=== PATIENT | male | born 1955 | race Caucasian/White ===

== ENCOUNTER 2021-12-24 18:23 | Emergency (ER) | payer MEDICARE, SELFPAY ==
[2021-12-24 18:57] VITALS: BP 137/60; PULSE 90; RESP 20; TEMP 37.1; O2SAT 100
--- NOTE | 2021-12-24 19:01 | ED.URI ---
HPI - URI/Sore Throat General Chief Complaint: Upper Respiratory Infection Stated Complaint: blurry eyes,cough,sneezing Time Seen by Provider: 12/24/21 19:43 Source: patient and RN notes reviewed Mode of arrival: ambulatory Limitations: no limitations History of Present Illness HPI Narrative: 66-year-old male presents with concern for bilateral eye drainage, blurry vision, eye irritation. He reports he also has a cough, nasal congestion, runny nose for 3 days. He reports he has been taking half doses of cough medicine due to his kidney impairment. He denies any injury to his eye, foreign bodies. Denies known sick contacts. Reports he has a history of allergies which she attributes the symptoms to. MD elicited complaint: cough, nasal congestion and other (Eye drainage) Related Data Home Medications Medication Instructions Recorded Confirmed atorvastatin 10 mg tablet 10 mg HS 12/24/21 12/24/21 bupropion HCl 150 mg 24 hr tablet, 150 mg PO DAILY 12/24/21 12/24/21 extended release finasteride 5 mg tablet 5 mg HS 12/24/21 12/24/21 glipizide 10 mg tablet 10 mg DAILY 12/24/21 12/24/21 insulin glargine 100 unit/mL (3 15 unit subcut DIRECTED 12/24/21 12/24/21 mL) subcutaneous pen (Basaglar KwikPen U-100 Insulin) lisinopril 2.5 mg tablet 2.5 mg DAILY 12/24/21 12/24/21 tamsulosin 0.4 mg capsule 0.4 mg PO BID 12/24/21 12/24/21 Allergies Allergy/AdvReac Type Severity Reaction Status Date / Time No Known Allergies Allergy Verified 12/24/21 19:45 Review of Systems Review of Systems: CONSTITUTIONAL: Denies malaise, chills, sweats, or fever. EYES: Reports bilateral blurry vision, purulent discharge redness, irritation ENT: Reports rhinorrhea, congestion. Denies sinus pain, otalgia and sore throat. CARDIOVASCULAR: Denies chest pain, palpitations, or edema. RESPIRATORY: Reports cough. Denies dyspnea. GASTROINTESTINAL: Denies abdominal pain, nausea, vomiting, diarrhea SKIN: Denies rash or itching. MUSCULOSKELETAL: Denies myalgia. NEUROLOGIC: Reports headache. All systems reviewed & are unremarkable except as noted in HPI and below PMFSH Comments At time of signature, agree with nursing past medical, surgical, social and family history. There is no relevant family history pertinent to the presenting complaint Exam Narrative: GENERAL: Nontoxic appearing and in no acute distress. HEAD: Normocephalic EYES: PERRLA, conjunctivae and sclera injected bilaterally with copious green discharge ENT: Nares clear, clear discharge. Mucous membranes moist.Oropharynx not erythematous without lesions. Tonsils not enlarged and without exudate, no drooling, no hoarseness, no trismus, uvula midline. NECK: Supple. No lymphadenopathy CHEST: Clear to auscultation, breath sounds equal. No wheezing, rhonchi, rales, or stridor. No respiratory distress, speaks in full sentences. HEART: Regular rate and rhythm. No murmur heard. SKIN: Warm, dry, no rash. NEURO: Alert and oriented x3. PSYCH: Normal mood and affect Course Course Emergency Course: Patient is aware of diagnosis, understands and agrees to treatment plan. Anticipatory guidance given. Patient agrees to follow-up as directed and is aware of reasons to seek care at the emergency department. Portions of this record may have been created with voice recognition software Level of Care: Express Care Visit Vital Signs Vital signs: Vital Signs Temperature 98.7 F 12/24/21 18:57 Pulse Rate 90 12/24/21 18:57 Respiratory Rate 20 12/24/21 18:57 Blood Pressure 137/60 12/24/21 18:57 Pulse Oximetry 100 12/24/21 18:57 Oxygen Delivery Room Air 12/24/21 18:57 Temperature 98.7 F 12/24/21 18:57 Pulse Rate 90 12/24/21 18:57 Respiratory Rate 20 12/24/21 18:57 Blood Pressure 137/60 12/24/21 18:57 Pulse Oximetry 100 12/24/21 18:57 Oxygen Delivery Room Air 12/24/21 18:57 Reviewed. MDM - URI/Sore Throat MDM Narrative Medical decision making narrative: Dif
== END 2021-12-24 20:02 | disposition home or self-care (01) ==
PROVIDERS: Emergency Provider Nurse Practitioner; PCP Family Medicine
DX: H10.9 Unspecified conjunctivitis (principal); J40 Bronchitis, not specified as acute or chronic; E78.00 Pure hypercholesterolemia, unspecified; N40.0 Benign prostatic hyperplasia without lower urinary tract symptoms; I12.9 Hypertensive chronic kidney disease with stage 1 through stage 4 chronic kidney disease, or unspecified chronic kidney disease; N18.4 Chronic kidney disease, stage 4 (severe)
CPT/HCPCS: 99213; G0463